=== PATIENT | female | born 1945 | race Asian ===

== ENCOUNTER → 2022-09-14 | Outpatient (CLI) | payer MEDICARE | END | disposition home or self-care (01) | LOC: RADMN 13:31 | PROVIDERS: ATTEND Family Medicine | DX: J43.9 Emphysema, unspecified (principal); Q25.46 Tortuous aortic arch; M47.814 Spondylosis without myelopathy or radiculopathy, thoracic region; R05.9 Cough, unspecified | CPT/HCPCS: 71046 ==